=== PATIENT | female | born 1975 | race Caucasian/White ===

== ENCOUNTER 2018-01-12 14:05 | Emergency (ER) | payer MEDICAID, OTHER ==
--- NOTE | 2018-01-12 14:24 | EDPHY ---
H & P Time Seen by Provider: 01/12/18 14:15 HPI/ROS: This patient sustained a right elbow injury from a fall while rollerblading at around 11:45 a.m. This morning. She reports 6/10 elbow pain after taking 600 mg of ibuprofen and 2 Tylenol tablets in addition. She is uncertain if the dose of the Tylenol 650 or 1000 mg shortly prior to arrival. The pain worsens with movement. No other exacerbating factors. She denies any other associated injuries except for a abrasion to the left knee. She notes swelling to the radial aspect of the elbow since the injury occurred. Her friend drove her here by private vehicle for evaluation. ROS: Neuro: No numbness . She does report mild tingling to the right forearm distal to the injury. No head injury associated with this. Musculoskeletal: No midline neck or back pain. No other associated extremity injuries. Integumentary: No lacerations to the right upper extremity. 5 point ROS is otherwise negative. Past Medical/Surgical History: Otherwise healthy Smoking Status: Never smoked Physical Exam: Physical Exam Vital signs are normal. General: No acute distress HEENT: Atraumatic. Extremities: No shoulder swelling or tenderness. Otherwise atraumatic except for right elbow Right elbow: Patient has mild to moderate swelling to the region of the radial head with associated tennis. No olecranon swelling or tenderness is appreciated. No humeral tenderness is appreciated. She has limited range of motion due to increase in pain with flexion extension, pronation supination. Lungs: No respiratory distress. Cardiac: Brisk capillary refill is intact throughout. Pulses are 2+ and symmetric in the affected extremity. Skin: No rash or pallor. Patient does have superficial left knee abrasion without active bleeding Neuro: Alert and oriented x3 with no sensorimotor deficits in the affected upper extremity. Initial differential diagnosis: Radial head fracture, proximal ulna fracture, traumatic hematoma, elbow sprain, distal humeral fracture Constitutional: Initial Vital Signs Temperature (C) 37.3 C 01/12/18 14:10 Heart Rate 72 01/12/18 14:10 Respiratory Rate 16 01/12/18 14:10 Blood Pressure 103/69 01/12/18 14:10 O2 Sat (%) 94 01/12/18 14:10 O2 Delivery Mode Room Air Allergies/Adverse Reactions: latex Allergy (Verified 01/12/18 14:09) Home Medications: Medication Instructions Recorded Claritin 01/12/18 traMADol [Ultram 50 mg (*)] 50 - 100 mg PO Q4 PRN #15 tab 01/12/18 MDM/Departure - MDM Diagnostics: Three-view elbow x-ray: Displaced lateral condyle fracture with small intra- articular chip by my interpretation Imaging: I viewed and interpreted images myself ED Course/Re-evaluation: Patient declined any further analgesics upon arrival here. She is treated with ice. Patient is placed in a long-arm posterior Ortho Glass splint by our tech with my supervision. The patient remains neurovascularly intact post splint application Spoke with Dr. Goins, orthopedic surgeon regarding this patient's injury. He reviewed the films and feels that she will ultimately require surgery. He plans due to have surgery beginning of next week. The patient will call to make a follow-up appointment for later this week to plan for surgery. Discussion: Patient with displaced lateral condyle fracture with intra- articular chip warranting ORIF without neurovascular compromise or other acute complications. Will plan to treat her pain with ibuprofen, Tylenol and tramadol if needed. I counseled patient regarding her injury, the plan and answered all her questions prior to her discharge home with sling and splint in place. She understands need to return emergency department should she develop any significant worsening symptoms despite treatment plan - Depart Disposition: Home, Routine, Self-Care Clinical Impression: Fracture of lateral condyle of elbow Qualifiers: Encounter type: initial encounter Fracture type: closed Fracture alignment: displaced Laterality: right Qualified Code(s): S42.451A - Displaced fracture of lateral condyle of right humerus, initial encounter for closed fracture Knee abrasion Qualifiers: Encounter type: initial encounter Laterality: right Qualified Code(s): S80.211A - Abrasion, right knee, initial encounter Condition: Good Instructions: Elbow Fracture (ED) Additional Instructions: Diagnosis: Lateral condyle fracture of elbow Plan: Splint at all times Sling when your up and about Ice 20 min at a time 3 times a day or more Ibuprofen Tylenol for pain control Tramadol in addition if needed for pain that prevents sleep. No driving, alcohol or come tramadol. Call Dr. Goins' office today to arrange follow-up appointment for Wednesday. He supervisor publications films and feels he will need surgery which plans to do early next week. Return emergency department if he developed unbearable pain despite medications , numbness or other concerns Prescriptions: traMADol [Ultram 50 mg (*)] 50 - 100 mg PO Q4 PRN #15 tab PRN Reason: breakthrough pain Referrals: ELICEO CERDA [Other] - As per Instructions Diego Goins MD [Medical Doctor] - As per Instructions Saqib Browne MD [Medical Doctor] - As per Instructions
[2018-01-12 15:58] VITALS: BP 116/74
== END 2018-01-12 15:58 | disposition home or self-care (01) ==
LOC: CED 14:05
DX: S42.451A Displaced fracture of lateral condyle of right humerus, initial encounter for closed fracture (principal); S80.211A Abrasion, right knee, initial encounter; Z91.040 Latex allergy status; V00.111A Fall from in-line roller-skates, initial encounter; Y99.8 Other external cause status; Y93.51 Activity, roller skating (inline) and skateboarding
CPT/HCPCS: 73080-PO; A4565